=== PATIENT | female | born 1980 | race Caucasian/White ===

== ENCOUNTER 2017-07-18 15:36 | Emergency (ER) | payer OTHER ==
[~2017-07-18] VITALS: Ht 170.2 cm; Wt 76.0 kg
[~2017-07-18 15:36] MED LIST: CATAPRES0.1 MG PO; FLEXERIL10 MG PO; LIDODERM 5% P1 PATCH TD; MACROBID100 MG PO; MEDROL DOSEPAK4 MG PO; METHADONE 22 MG/1 ML PO; METHADONE PO; METHADOSE40 MG PO; MOBIC7.5 MG PO; MOTRIN600 MG PO; NAPROSYN500 MG PO; NAPROXEN500 MG PO; PREDNISONE10 M1 PO; PREDNISONE20 MG PO; PROMETHAZINE HC25 M1 PO; SKELAXIN800 MG PO; TRAZODONE HCL50 MG PO; VENTOLIN HFA18 GM IH; ZITHROMAX Z-PA250 MG PO; ZOFRAN4 MG PO
[2017-07-18 19:11] VITALS: BP 123/78
== END 2017-07-18 19:11 | disposition home or self-care (01) ==
LOC: EME 15:36
DX: J02.9 Acute pharyngitis, unspecified (principal); B34.9 Viral infection, unspecified; R00.0 Tachycardia, unspecified; J32.9 Chronic sinusitis, unspecified; Z88.0 Allergy status to penicillin
CPT/HCPCS: 81003; 99281; 99284

== ENCOUNTER 2017-11-12 19:14 | Emergency (ER) | payer OTHER ==
[~2017-11-12] VITALS: Ht 167.6 cm; Wt 96.4 kg
[2017-11-12 20:07] LABS: HEMATOCRIT 35.7 % (36.0-46.0); HEMOGLOBIN 12.4 G/DL (11.9-15.5); MCH 32.6 PG (29.0-34.0); MCHC 34.7 G/DL (30.0-36.0); MCV 93.9 FL (83-99); PLATELET COUNT 272 K/uL (156-360); RBC DIS.WIDTH-CV 12.7 % (11.8-14.6); RBC DIS.WIDTH-SD 43.8 % (39-53); WHITE BLOOD COUNT 7.2 K/uL (4.1-10.2)
[2017-11-12 20:15] LABS: CHLORIDE 106 mEq/L (99-109); POTASSIUM 3.8 mEq/L (3.7-5.4); SODIUM 140 mEq/L (136-147)
[2017-11-12 20:17] LABS: GLUCOSE 107 mg/dL (70-99)
[2017-11-12 20:19] LABS: D-DIMER ELISA < 150.00 ng/mLDDU (<230)
[2017-11-12 20:21] LABS: CREATININE 0.8 mg/dL (0.6-1.3); GFR ESTIMATE (CALCULATED) > 59 mL/min/
[2017-11-12 20:22] LABS: UREA NITROGEN (BUN) 10 mg/dL (9-23)
[2017-11-12 20:30] LABS: QUANTITATIVE HCG < 4.0 MIU/ML; TROP-I INTERPRETATION NEGATIVE; TROPONIN-I < 0.01 ng/mL (0.0-0.30)
[2017-11-12 22:38] LABS: TROP-I INTERPRETATION NEGATIVE; TROPONIN-I 0.01 ng/mL (0.0-0.30)
[2017-11-12 22:56] VITALS: BP 100/59
== END 2017-11-12 22:56 | disposition home or self-care (01) ==
LOC: EME → EDBD 19:14 → EME 22:56
PROVIDERS: Emergency Medicine
DX: M94.0 Chondrocostal junction syndrome [Tietze] (principal); Z86.79 Personal history of other diseases of the circulatory system; J44.9 Chronic obstructive pulmonary disease, unspecified; F17.200 Nicotine dependence, unspecified, uncomplicated; E78.5 Hyperlipidemia, unspecified; F32.9 Major depressive disorder, single episode, unspecified; F31.9 Bipolar disorder, unspecified; G43.909 Migraine, unspecified, not intractable, without status migrainosus; Z87.19 Personal history of other diseases of the digestive system; Z88.0 Allergy status to penicillin
CPT/HCPCS: 71046; 80048; 84484; 84702; 85027; 85379; 93005; 99281; 99285